=== PATIENT | female | born 1955 | race African-American/Black ===

== ENCOUNTER 2016-07-11 18:57 | Emergency (ER) | payer MEDICARE, MEDICAID ==
[~2016-07-11] VITALS: Ht 152.4 cm; Wt 54.4 kg
[2016-07-11] MEDS ORDERED: ASPIRIN 325 MG TABLET ONE (19:10)
[2016-07-11] MEDS ORDERED: ASPIRIN 325 MG TABLET PO ONE (19:30)
[2016-07-11 19:34] LABS: ANION GAP 11 (5-14); CALCIUM, SERUM 8.6 mg/dL (8.5-10.1); CARBON DIOXIDE 30 mmol/L (21-32); CHLORIDE 99 mmol/L (98-107); CREATININE 0.7 mg/dL (0.6-1.3); GFR 104 mL/min (>60); GLUCOSE 115 mg/dL (74-106); POTASSIUM 4.2 mmol/L (3.5-5.1); SODIUM SERUM 135 mmol/L (136-145); UREA NITROGEN, BLOOD 20 mg/dL (7-18)
[2016-07-11 19:38] LABS: PROTHROMBIN TIME 10.5 SECS (9.5-12.7)
[2016-07-11 19:40] LABS: ALANINE AMINOTRANSFERASE 10 U/L (12-78); ALBUMIN 2.8 g/dL (3.4-5.0); ASPARTATE AMINOTRANSFERASE 16 U/L (15-37); BILIRUBIN,DIRECT 0.1 mg/dL (0.0-0.2); BILIRUBIN,TOTAL 0.2 mg/dL (0.2-1.0); INDIRECT BILIRUBIN 0.1 mg/dL (0.0-1.1); TOTAL PROTEIN, SERUM 7.7 g/dL (6.4-8.2)
[2016-07-11 19:42] LABS: TROPONIN I < 0.017 ng/mL (0.00-0.056)
[2016-07-11 19:57] LABS: BASOPHILS % (AUTO) 0.5 % (0.0-2.0); DIFF TOTAL % 100 %; EOSINOPHILS # (AUTO) 0.4 /CMM (0.0-0.7); EOSINOPHILS % (AUTO) 5.8 % (0.0-6.0); HEMATOCRIT 31 % (33-45); HEMOGLOBIN 10.7 g/dL (11.5-14.8); LYMPHOCYTES # (AUTO) 1.5 /CMM (0.8-4.8); LYMPHOCYTES % (AUTO) 20.5 % (20.0-44.0); MEAN CORPUSCULAR HEMOGLOBIN 34 PG (26.0-33.0); MEAN CORPUSCULAR HGB CONC 35 g/dl (31.0-36.0); MEAN CORPUSCULAR VOLUME 97 fL (82-100); MONOCYTES # (AUTO) 0.6 /CMM (0.1-1.30); MONOCYTES % (AUTO) 8.6 % (2.0-12.0); NEUTROPHILS # (AUTO) 4.8 /CMM (1.8-8.9); NEUTROPHILS % (AUTO) 64.6 % (43.0-81.0); PLATELET COUNT (AUTO) 367 /CMM (150-450); WHITE BLOOD COUNT (AUTO) 7.3 K/uL (4.3-11.0)
[2016-07-11 23:33] VITALS: BP 107/71
== END 2016-07-11 23:35 | disposition home or self-care (01) ==
LOC: ER 18:59
DX: R07.9 Chest pain, unspecified (principal); F79 Unspecified intellectual disabilities; I10 Essential (primary) hypertension; Z88.0 Allergy status to penicillin
CPT/HCPCS: 36415; 71010; 80048; 80076; 84484 ×2; 85025; 85730; 93005 ×3; 99285; A4606; Z7610